=== PATIENT | female | born 1980 | race Caucasian/White ===

== ENCOUNTER → 2019-01-21 | Outpatient (CLI) | payer OTHER | END | disposition home or self-care (01) | LOC: RAD 17:20 | PROVIDERS: ATTEND Psychiatry & Neurology Neurology | DX: M25.561 Pain in right knee (principal); M25.562 Pain in left knee; M25.571 Pain in right ankle and joints of right foot; M25.552 Pain in left hip; M25.551 Pain in right hip; S83.012A Lateral subluxation of left patella, initial encounter | CPT/HCPCS: 73523 ==

== ENCOUNTER → 2019-02-01 | Outpatient (CLI) | payer OTHER | END | disposition home or self-care (01) | LOC: CARD 14:49 | PROVIDERS: ATTEND Psychiatry & Neurology Neurology | DX: R56.9 Unspecified convulsions (principal); R94.02 Abnormal brain scan; G93.40 Encephalopathy, unspecified | CPT/HCPCS: 95819 ==

== ENCOUNTER → 2019-04-25 | Outpatient (CLI) | payer OTHER | END | disposition home or self-care (01) | LOC: CARD 09:18 | PROVIDERS: ATTEND Psychiatry & Neurology Neurology | DX: R40.20 Unspecified coma (principal) | CPT/HCPCS: 95819 ==

== ENCOUNTER → 2019-08-28 | Outpatient (CLI) | payer OTHER | END | disposition home or self-care (01) | LOC: LAB 15:00 | PROVIDERS: ATTEND Pain Medicine Interventional Pain Medicine | DX: M25.551 Pain in right hip (principal); M25.552 Pain in left hip | CPT/HCPCS: 73523 ==

== ENCOUNTER 2019-09-17 09:46 | Outpatient (CLI) | payer OTHER ==
[2019-09-17 10:46] LABS: BASOPHILS # (AUTO) 0.04 x10^3/uL (0-0.1); BASOPHILS % (AUTO) 0 % (0-1); EOSINOPHILS # (AUTO) 0.26 x10^3/uL (0-0.4); EOSINOPHILS % (AUTO) 3 % (1-7); LYMPHOCYTES # (AUTO) 2.53 x10^3/uL (1-3.4); LYMPHOCYTES % (AUTO) 25 % (22-44); MD NO; MEAN CORPUSCULAR HEMOGLOBIN 29.6 pg (27.0-34.8); MEAN CORPUSCULAR HGB CONC 32.1 g/dL (32.4-35.8); MEAN CORPUSCULAR VOLUME 92.2 fL (80-100); MEAN PLATELET VOLUME 8.4 fL (7.4-10.4); MONOCYTES # (AUTO) 0.81 x10^3/uL (0.2-0.8); MONOCYTES % (AUTO) 8 % (2-9); NEUTROPHILS # (AUTO) 6.64 x10^3/uL (1.8-6.8); NEUTROPHILS % (AUTO) 65 % (42-75); PLATELET COUNT 371 x10^3/uL (130-400); RED BLOOD COUNT 4.57 x10^6/uL (3.82-5.3); RED CELL DISTRIBUTION WIDTH 13.1 % (9.6-15.2)
[2019-09-17 10:55] LABS: ALANINE AMINOTRANSFERASE 25 U/L (12-78); CALCIUM 9.4 mg/dL (8.5-10.1); CREATININE 0.96 mg/dL (0.55-1.02)
[2019-09-17 10:59] LABS: ALKALINE PHOSPHATASE 54 U/L (45-117); BILIRUBIN,TOTAL 0.3 mg/dL (0.2-1.0); TOTAL PROTEIN 7.2 g/dL (6.4-8.2)
[2019-09-17] MEDS ORDERED: IMIP25TA3 PO (11:12)
[2019-09-17] MEDS ORDERED: [UNRECOGNIZED DRUG - OTHER] PO (11:12)
[2019-09-17] MEDS ORDERED: BUPR1PAT9 TP (11:12)
[2019-09-17] MEDS ORDERED: BUPR150T73 PO (11:12)
[2019-09-17] MEDS ORDERED: MODA100T2 PO (11:12)
[2019-09-17] MEDS ORDERED: PREG75CA PO (11:12)
[2019-09-17] MEDS ORDERED: OXYC-306 PO (11:12)
[2019-09-17 11:15] LABS: ANION GAP 4 mmol/L (5-15); CHLORIDE 107 mmol/L (98-107)
== END 2019-09-17 23:59 | disposition home or self-care (01) ==
LOC: STAR 09:46
PROVIDERS: ATTEND Obstetrics & Gynecology Maternal & Fetal Medicine
DX: Z01.818 Encounter for other preprocedural examination (principal); N92.0 Excessive and frequent menstruation with regular cycle
CPT/HCPCS: 36415; 80053; 84702; 85025

== ENCOUNTER 2019-09-23 09:49 | Observation (INO) | payer OTHER ==
[~2019-09-23] VITALS: Ht 172.7 cm; Wt 68.2 kg
[~2019-09-23 09:49] MED LIST: BUPR150T73 PO; BUPR1PAT9 TP; IMIP25TA3 PO; MODA100T2 PO; OXYC-306 PO; PREG75CA PO; [UNRECOGNIZED DRUG - OTHER] PO
[2019-09-23] MEDS ORDERED: LACTATED RINGERS 1,000 ML IV SCH (14:12)
[2019-09-23] MEDS ORDERED: LIDOCAINE-MPF 1%, 2ML ONE (14:23)
[2019-09-23] MEDS ORDERED: CHLORHEXIDINE 15 ML UDC MM ONE (14:30)
[2019-09-23] MEDS ORDERED: LIDOCAINE-MPF 1%, 2ML INFIL ONE (14:30)
[2019-09-23] MEDS ORDERED: CHLORHEXIDINE 15 ML UDC ONE (14:33)
[2019-09-23] MEDS ORDERED: BUPIVACAINE/PF-EPI 0.25% 1:200K ONE (14:39)
[2019-09-23] MEDS ORDERED: NEOSPORIN OINT, 15GM ONE (14:40)
[2019-09-23] MEDS ORDERED: FLUORESCEIN SODIUM 500 MG/5 ML ONE (14:40)
[2019-09-23 14:43] LABS: HCG UR SG 1.002 (1.003-1.030)
[2019-09-23] MEDS ORDERED: ACETAMINOPHEN 500 MG TABLET PO ONE (15:30)
[2019-09-23] MEDS ORDERED: SCOPOLAMINE 1MG PATCH TD SCH (15:30)
[2019-09-23] MEDS ORDERED: DIAZEPAM 5 MG TABLET PO ONE (15:30)
[2019-09-23] MEDS ORDERED: FENTANYL PF 250 MCG/5ML ONE ×2 (15:46→16:54)
[2019-09-23] MEDS ORDERED: PROPOFOL 10 MG/ML, 20ML ONE (15:46)
[2019-09-23] MEDS ORDERED: MIDAZOLAM 1 MG/ML, 2ML ONE (15:46)
[2019-09-23] MEDS ORDERED: DEXAMETHASONE 4 MG/ML, 1ML ONE (15:46)
[2019-09-23] MEDS ORDERED: GLYCOPYRROLATE 0.2MG/1ML, 5ML ONE (15:46)
[2019-09-23] MEDS ORDERED: ROCURONIUM 10MG/ML,5ML ONE (15:46)
[2019-09-23] MEDS ORDERED: LIDOCAINE-MPF 2% ,5ML ONE (15:46)
[2019-09-23] MEDS ORDERED: HALOPERIDOL 5 MG/ML IV PRN (16:00)
[2019-09-23] MEDS ORDERED: ALBUTEROL/IPRATROPIUM 2.5MG/0.5MG, 3 ML NPPB PRN (16:00)
[2019-09-23] MEDS ORDERED: EPHEDRINE 50 MG/ML, 1ML IVPush PRN (16:00)
[2019-09-23] MEDS ORDERED: hydrALAzine 20 MG/ML, 1ML IV PRN (16:00)
[2019-09-23] MEDS ORDERED: OXYcodone 5 MG/5 ML ORAL.SOL UDC PO PRN (16:00)
[2019-09-23] MEDS ORDERED: EPHEDRINE 50 MG/ML, 1ML IM PRN (16:00)
[2019-09-23] MEDS ORDERED: ACETAMINOPHEN 325 MG TABLET PO PRN (16:00)
[2019-09-23] MEDS ORDERED: KETOROLAC 30 MG/1 ML IVPush PRN (16:00)
[2019-09-23] MEDS ORDERED: METOCLOPRAMIDE 5 MG/ML, 2ML IVPush PRN (16:00)
[2019-09-23] MEDS ORDERED: DIPHENHYDRAMINE 50 MG/ML, 1ML IVPush PRN (16:00)
[2019-09-23] MEDS ORDERED: MIDAZOLAM 1 MG/ML, 2ML IV PRN (16:00)
[2019-09-23] MEDS ORDERED: ONDANSETRON 2MG/ML, 2ML IVPush PRN (16:00)
[2019-09-23] MEDS ORDERED: METHOCARBAMOL 1,000 MG in DEXTROSE 5% 100 ML IV PRN (16:00)
[2019-09-23] MEDS ORDERED: LORazepam 2 MG/ML, 1ML IVPush PRN (16:00)
[2019-09-23] MEDS ORDERED: LABETALOL 5MG/ML, 20ML IV PRN (16:00)
[2019-09-23] MEDS ORDERED: MEPERIDINE/PF 25MG/0.5ML IVPush PRN (16:00)
[2019-09-23] MEDS ORDERED: HYDROcodone/APAP 7.5-325MG/15ML UDC PO PRN (16:00)
[2019-09-23] MEDS ORDERED: CEFAZOLIN 1,000 MG ONE (16:10)
[2019-09-23] MEDS ORDERED: ONDANSETRON 2MG/ML, 2ML ONE (16:10)
[2019-09-23] MEDS ORDERED: SUGAMMADEX 200 MG/2 ML IVPush ONE (17:47)
[2019-09-23] MEDS ORDERED: FENTANYL PF 100 MCG/2ML ONE ×2 (18:31→18:50)
[2019-09-23] MEDS ORDERED: ACETAMINOPHEN 650 MG/20.3 ML UDC ONE (18:31)
[2019-09-23] MEDS ORDERED: HYDROmorphone 2 MG/ML, 1ML ONE (18:32)
[2019-09-23] MEDS ORDERED: OXYcodone 5 MG/5 ML ORAL.SOL UDC ONE (18:32)
[2019-09-23] MEDS: FENTANYL PF 100 MCG/2ML IV PRN ×4 (18:35→19:06)
[2019-09-23] MEDS ORDERED: DIAZEPAM 5 MG/ML, 2ML ONE (18:39)
[2019-09-23] MEDS: HYDROmorphone 1 MG/ML, 1ML INJ IVPush PRN ×4 (18:44→19:12)
[2019-09-23] MEDS: DIAZEPAM 5 MG/ML, 2ML IVPush PRN ×2 (18:49→19:30)
[2019-09-24] MEDS ORDERED: ACETAMINOPHEN 500 MG TABLET PO PRN (00:30)
[2019-09-24] MEDS ORDERED: SIMETHICONE 80 MG CHEW TAB PO PRN (00:30)
[2019-09-24] MEDS ORDERED: OXYcodone 5 MG/5 ML ORAL.SOL UDC PO PRN (00:30)
[2019-09-24 00:50] VITALS: BP 129/76
[2019-09-24] MEDS: KETOROLAC 30 MG/1 ML IVPush SCH ×3 (01:49→13:34)
[2019-09-24] MEDS: D5%-LACTATED RINGERS 1,000 ML IV SCH ×2 (01:58→11:37)
[2019-09-24 06:13] VITALS: BP 104/72
[2019-09-24 07:57] VITALS: BP 106/69
[2019-09-24] MEDS ORDERED: DOCUSATE 100 MG CAPSULE PO SCH (09:00)
[2019-09-24] MEDS: OXYcodone IR 5MG TABLET PO PRN ×2 (11:36→14:34)
[2019-09-24 12:34] VITALS: BP 117/69
[2019-09-24] MEDS ORDERED: OXYC5CAP2 PO (14:06)
[2019-09-24] MEDS ORDERED: IBUP-1222 PO (14:07)
== END 2019-09-24 14:44 | disposition home or self-care (01) ==
LOC: OR 13:47 → EDSTATUS 15:30 → 3N 20:22 → INTOOBSV 20:22 → DCLOUNGE 09-24 14:40
PROVIDERS: ADMIT Obstetrics & Gynecology Maternal & Fetal Medicine; ATTEND Obstetrics & Gynecology Maternal & Fetal Medicine
DX: Z03.818 Encounter for observation for suspected exposure to other biological agents ruled out (principal); N94.6 Dysmenorrhea, unspecified; N92.4 Excessive bleeding in the premenopausal period; M79.7 Fibromyalgia; F41.8 Other specified anxiety disorders; M51.35 Other intervertebral disc degeneration, thoracolumbar region; G89.29 Other chronic pain; Z79.899 Other long term (current) drug therapy
CPT/HCPCS: 36415; 58552; 81025; 85014; 85018; 87635; 88307; 96374; 96375; 96376; G0378; J0690; J1100; J1170; J1885; J2250; J2270; J2405; J2704; J2800; J3010; J3360; J3490; J7120; J7121

== ENCOUNTER → 2020-08-27 | Outpatient (CLI) | payer OTHER ==
[~2020-08-27] MED LIST changes: +IBUP-1222 PO; -OXYC-306 PO; +OXYC1TAB17 PO; +OXYC5CAP2 PO
[2020-08-27 13:43] LABS: ALANINE AMINOTRANSFERASE 27 U/L (12-78); ANION GAP 6 mmol/L (5-15); CALCIUM 8.9 mg/dL (8.5-10.1); CHLORIDE 107 mmol/L (98-107)
[2020-08-27 13:46] LABS: BASOPHILS % (AUTO) 1 % (0-1); EOSINOPHILS % (AUTO) 1 % (1-7); HCT (SEDRATE) 44.4 % (34.6-47.8); LYMPHOCYTES % (AUTO) 26 % (22-44); MEAN CORPUSCULAR HEMOGLOBIN 32.2 pg (27.0-34.8); MEAN CORPUSCULAR HGB CONC 34.5 g/dL (32.4-35.8); MEAN PLATELET VOLUME 8.7 fL (7.4-10.4); MONOCYTES % (AUTO) 7 % (2-9); NEUTROPHILS % (AUTO) 65 % (42-75); PLATELET COUNT 332 x10^3/uL (130-400); RED BLOOD COUNT 4.72 x10^6/uL (3.82-5.3); RED CELL DISTRIBUTION WIDTH 12.3 % (9.6-15.2)
[2020-08-27 13:53] LABS: ALKALINE PHOSPHATASE 57 U/L (45-117); BILIRUBIN,TOTAL 0.6 mg/dL (0.2-1.0); C-REACTIVE PROTEIN, QUANT 0.18 mg/dL (0.02-0.49); CREATININE 0.93 mg/dL (0.55-1.02); FREE T4 (FREE THYROXINE) 0.73 ng/dL (0.76-1.46); TOTAL PROTEIN 7.5 g/dL (6.4-8.2)
== END | disposition home or self-care (01) ==
LOC: LAB 12:47
PROVIDERS: ATTEND Nurse Practitioner
DX: M25.50 Pain in unspecified joint (principal)
CPT/HCPCS: 36415; 80053; 82306; 84439; 84443; 85025; 85651; 86038; 86140; 86200; 86617